=== PATIENT | male | born 1995 | race Caucasian/White ===

== ENCOUNTER 2017-04-19 11:03 | Emergency (ER) | payer OTHER, MEDICAID | END 2017-04-19 13:49 | disposition home or self-care (01) | LOC: FTE 11:03 | DX: H57.9 Unspecified disorder of eye and adnexa (principal) | CPT/HCPCS: 99283; Z7502 ==

== ENCOUNTER → 2017-11-12 | Outpatient (CLI) | payer OTHER | END | disposition home or self-care (01) | LOC: EEG 09:57 | DX: G40.909 Epilepsy, unspecified, not intractable, without status epilepticus (principal) | CPT/HCPCS: 95819 ==

== ENCOUNTER 2017-12-27 10:40 | Emergency (ER) | payer OTHER | END 2017-12-27 11:36 | disposition home or self-care (01) | LOC: FTE 10:40 | DX: L20.9 Atopic dermatitis, unspecified (principal) | CPT/HCPCS: 99283; Z7502 ==